=== PATIENT | female | born 1950 | race Caucasian/White ===

== ENCOUNTER → 2020-07-09 | Outpatient (CLI) | payer BC ==
[~2020-07-09] MED LIST: IBUP600 PO; LEVFLO500 PO; OXYACE5T PO; SERT100 PO
== END | disposition home or self-care (01) ==
LOC: LAB SHORT 10:57 → PLD 10:57
DX: D22.5 Melanocytic nevi of trunk (principal)
CPT/HCPCS: 88305

== ENCOUNTER → 2020-09-23 | Outpatient (CLI) | payer BC | LOC: LAB SHORT 16:30 → LAB 16:30 | DX: L02.31 Cutaneous abscess of buttock (principal) | CPT/HCPCS: 87070; 87077; 87186; 87205 ==

== ENCOUNTER 2021-01-15 12:41 | Day surgery (SDC) | payer BC ==
[~2021-01-15] VITALS: Ht 157.5 cm; Wt 57.0 kg
[~2021-01-15 12:41] MED LIST changes: +AMLO5 PO; +BUPROPION XL150 M1 PO; +IRBESARTAN150 MG PO; +Lovastatin40 MG PO
--- NOTE | 2021-01-15 14:27 | NUR ---
01/15/21 1427 Sally Pinzon BUPIVACAINE 30 MLS MIXED WITH EPI 0.15ML TO MAKE BUPIVACAINE 0.5% 1:200,000 PER ORDER FOR INJECTION BY DR. CAGLE. LIDOCAINE 2% 1:100,000 MIXED W/ BUPIVACAINE 0.5% 1:200,000 1:1 PER ORDER FOR INJECTION BY DR. CAGLE. 5 MLS INJECTE AT OPISTE BY DR. CAGLE.
== END 2021-01-15 15:35 | disposition home or self-care (01) ==
LOC: ORSCSDS 12:41
PROVIDERS: Ophthalmology
PROC: 08BN0ZZ Excision of Right Upper Eyelid, Open Approach (ICD-10-PCS; principal; 2021-01-15 14:15)
PROC: 08BP0ZZ Excision of Left Upper Eyelid, Open Approach (ICD-10-PCS; principal; 2021-01-15 14:15)
PROC: 080PXZZ Alteration of Left Upper Eyelid, External Approach (ICD-10-PCS; principal; 2021-01-15 14:15)
PROC: 080NXZZ Alteration of Right Upper Eyelid, External Approach (ICD-10-PCS; principal; 2021-01-15 14:15)
DX: H02.831 Dermatochalasis of right upper eyelid (principal); H02.834 Dermatochalasis of left upper eyelid; H02.423 Myogenic ptosis of bilateral eyelids; I10 Essential (primary) hypertension; Z79.899 Other long term (current) drug therapy
CPT/HCPCS: A9270; J2250; J3010; J7120

== ENCOUNTER 2023-08-17 14:51 | Emergency (ER) | payer BC ==
[~2023-08-17] VITALS: Ht 157.5 cm; Wt 53.1 kg
[2023-08-17 15:58] LABS: BASOPHILS ABSOLUTE AUTO 0.06 K/mm3 (0.00-0.23); BASOPHILS PERCENT AUTO 1 % (0-2); EOSINOPHILS ABSOLUTE AUTO 0.14 K/mm3 (0.00-0.68); EOSINOPHILS PERCENT AUTO 2 % (0-6); Hemoglobin 12.7 g/dL (11.5-16.0); IMMATURE GRAN ABSOLUTE AUTO 0.01 K/mm3 (0.00-0.10); IMMATURE GRAN PERCENT AUTO 0 % (0-1); LYMPHOCYTES ABSOLUTE AUTO 2.26 K/mm3 (0.84-5.20); LYMPHOCYTES PERCENT AUTO 26 % (21-46); MONOCYTES ABSOLUTE AUTO 0.59 K/mm3 (0.16-1.47); MONOCYTES PERCENT AUTO 7 % (4-13); Mean Corpuscular HGB 31.3 pg (26.0-34.0); Mean Corpuscular HGB Conc 32.6 g/dL (31.5-36.5); Mean Corpuscular Volume 96 fL (80-100); Mean Platelet Volume 10.4 fL (9.1-12.4); NEUTROPHILS ABSOLUTE AUTO 5.51 K/mm3 (1.96-9.15); NEUTROPHILS PERCENT AUTO 64 % (41-73); Platelet Count 219 K/mm3 (150-400); RDW Coefficient Variation 13.4 % (11.7-14.2); RDW Standard Deviation 47.7 fL (35.1-46.3); Red Blood Cell Count 4.06 M/mm3 (3.80-5.20); White Blood Cell Count 8.57 K/mm3 (4.00-11.30)
[2023-08-17 15:59] LABS: Albumin, Blood 3.8 g/dL (3.4-5.0); Albumin/Globulin Ratio 1.5 (0.8-1.8); Bilirubin, Total 0.4 mg/dL (0.1-1.0); Bun/Creatinine Ratio 25.1 (12.0-20.0); Calcium, Blood 9.7 mg/dL (8.5-10.1); Creatinine, Blood 0.68 mg/dL (0.40-1.00); Globulin, Blood 2.6 g/dL (2.2-4.0); Potassium, Blood 3.4 mmol/L (3.5-5.5); Total Protein, Blood 6.4 g/dL (6.4-8.2)
[2023-08-17] MEDS ORDERED: Percocet 5-3251 EACH PO (18:36)
[2023-08-17 19:00] VITALS: BP 149/80
== END 2023-08-17 19:19 | disposition home or self-care (01) ==
LOC: ER 14:51
PROVIDERS: Emergency Medicine
DX: S59.291A Other physeal fracture of lower end of radius, right arm, initial encounter for closed fracture (principal); S52.614A Nondisplaced fracture of right ulna styloid process, initial encounter for closed fracture; H91.90 Unspecified hearing loss, unspecified ear; F17.200 Nicotine dependence, unspecified, uncomplicated; W18.30XA Fall on same level, unspecified, initial encounter; Z91.048 Other nonmedicinal substance allergy status; Z79.899 Other long term (current) drug therapy
CPT/HCPCS: 73110; 80053; 85025; 93005; 93010; 99284-25; A9270

== ENCOUNTER 2023-08-30 11:57 | Day surgery (SDC) | payer BC ==
[~2023-08-30] VITALS: Ht 154.9 cm; Wt 52.0 kg
[2023-08-30] VITALS (10 sets, daily range): BP systolic 122–151; BP diastolic 78–96
[~2023-08-30 11:57] MED LIST changes: +Percocet 5-3251 EACH PO
[2023-08-30] MEDS ORDERED: IBUPROFEN IB200 MG PO (12:50)
--- NOTE | 2023-08-30 16:31 | NUR ---
Patient up to Ambulate independently. Gait steady. Patient States Post-Procedure ride home has been arranged. Discharged via wheelchair to private car for ride home. Discharge instructions reviewed with patient. Patient verbalizes understanding. Copy given to patient to take home.
== END 2023-08-30 16:31 | disposition home or self-care (01) ==
LOC: ORSCMMR 11:57 → ORD 13:30 → ORSCMMR 13:30
PROVIDERS: Orthopaedic Surgery
PROC: 0PSH04Z Reposition Right Radius with Internal Fixation Device, Open Approach (ICD-10-PCS; principal; 2023-08-30 13:30)
DX: S52.531A Colles' fracture of right radius, initial encounter for closed fracture (principal); W18.30XA Fall on same level, unspecified, initial encounter; I10 Essential (primary) hypertension; J44.9 Chronic obstructive pulmonary disease, unspecified; F17.210 Nicotine dependence, cigarettes, uncomplicated; Z79.899 Other long term (current) drug therapy
CPT/HCPCS: 73110; A9270; C1713; J0690; J1100; J2250; J2405; J2704; J3010; J7120

== ENCOUNTER 2023-11-09 11:34 | Emergency (ER) | payer BC ==
[~2023-11-09] VITALS: Ht 157.5 cm; Wt 53.5 kg
[~2023-11-09 11:34] MED LIST changes: +IBUPROFEN IB200 MG PO
[2023-11-09 12:07] VITALS: BP 150/94
[2023-11-09] MEDS ORDERED: BUPR150ER PO (12:19)
[2023-11-09] MEDS ORDERED: HYDR1TAB94 PO (13:49)
== END 2023-11-09 13:54 | disposition home or self-care (01) ==
LOC: ER 11:34
DX: S52.572A Other intraarticular fracture of lower end of left radius, initial encounter for closed fracture (principal); S52.232A Displaced oblique fracture of shaft of left ulna, initial encounter for closed fracture; F17.200 Nicotine dependence, unspecified, uncomplicated; W18.30XA Fall on same level, unspecified, initial encounter; Z79.899 Other long term (current) drug therapy
CPT/HCPCS: 29105; 73110; 99283-25

== ENCOUNTER 2023-11-12 11:25 | Day surgery (SDC) | payer BC ==
[2023-11-12] VITALS (14 sets, daily range): BP systolic 129–178; BP diastolic 67–127
[~2023-11-12 11:25] MED LIST changes: +BUPR150ER PO; +HYDR1TAB94 PO
--- NOTE | 2023-11-12 16:51 | NUR ---
Discharge instructions reviewed with patient. Patient verbalizes understanding. Copy given to patient to take home. Physical copy of prescription placed in pt's discharge folder. Patient States Post-Procedure ride home has been arranged. Discharged via wheelchair to private car for ride home.
== END 2023-11-12 16:50 | disposition home or self-care (01) ==
LOC: ORSCMMR 11:25
PROVIDERS: Orthopaedic Surgery
PROC: 0PSJ04Z Reposition Left Radius with Internal Fixation Device, Open Approach (ICD-10-PCS; principal; 2023-11-12 13:30)
PROC: 0PSV04Z Reposition Left Finger Phalanx with Internal Fixation Device, Open Approach (ICD-10-PCS; principal; 2023-11-12 13:30)
DX: S52.552A Other extraarticular fracture of lower end of left radius, initial encounter for closed fracture (principal); W18.30XA Fall on same level, unspecified, initial encounter; I10 Essential (primary) hypertension; F17.210 Nicotine dependence, cigarettes, uncomplicated; F41.9 Anxiety disorder, unspecified; F32.A Depression, unspecified; Z79.899 Other long term (current) drug therapy
CPT/HCPCS: 73100; C1713; J0690; J1100; J1885; J2405; J2704; J7120

== ENCOUNTER 2024-06-27 19:22 | Emergency (ER) | payer BC ==
[~2024-06-27] VITALS: Ht 157.5 cm; Wt 53.1 kg
[2024-06-27 19:47] LABS: BASOPHILS ABSOLUTE AUTO 0.07 K/mm3 (0.00-0.23); BASOPHILS PERCENT AUTO 1 % (0-2); EOSINOPHILS ABSOLUTE AUTO 0.23 K/mm3 (0.00-0.68); EOSINOPHILS PERCENT AUTO 2 % (0-6); Hematocrit 42.2 % (33.0-51.0); Hemoglobin 13.6 g/dL (11.5-16.0); IMMATURE GRAN ABSOLUTE AUTO 0.03 K/mm3 (0.00-0.10); IMMATURE GRAN PERCENT AUTO 0 % (0-1); LYMPHOCYTES ABSOLUTE AUTO 3.21 K/mm3 (0.84-5.20); LYMPHOCYTES PERCENT AUTO 31 % (21-46); MONOCYTES ABSOLUTE AUTO 0.76 K/mm3 (0.16-1.47); MONOCYTES PERCENT AUTO 7 % (4-13); Mean Corpuscular HGB 31.6 pg (26.0-34.0); Mean Corpuscular HGB Conc 32.2 g/dL (31.5-36.5); Mean Corpuscular Volume 98 fL (80-100); NEUTROPHILS ABSOLUTE AUTO 6.12 K/mm3 (1.96-9.15); NEUTROPHILS PERCENT AUTO 59 % (41-73); Platelet Count 240 K/mm3 (150-400); RDW Coefficient Variation 13.6 % (11.7-14.2); RDW Standard Deviation 49.1 fL (35.1-46.3); Red Blood Cell Count 4.31 M/mm3 (3.80-5.20); White Blood Cell Count 10.42 K/mm3 (4.00-11.30)
[2024-06-27 20:15] LABS: Albumin, Blood 3.8 g/dL (3.4-5.0); Albumin/Globulin Ratio 1.3 (0.8-1.8); Bilirubin, Total 0.4 mg/dL (0.1-1.0); Calcium, Blood 9.7 mg/dL (8.5-10.1); Creatinine, Blood 0.76 mg/dL (0.40-1.00); Globulin, Blood 2.9 g/dL (2.2-4.0); Potassium, Blood 3.4 mmol/L (3.5-5.5); Total Protein, Blood 6.7 g/dL (6.4-8.2)
[2024-06-27 21:45] VITALS: BP 115/70
== END 2024-06-27 21:50 | disposition home or self-care (01) ==
LOC: ER 19:22
PROVIDERS: Emergency Medicine
DX: F41.9 Anxiety disorder, unspecified (principal); F17.200 Nicotine dependence, unspecified, uncomplicated; Z79.899 Other long term (current) drug therapy
CPT/HCPCS: 80053; 85025; 93005; 93010; 99283-25

== ENCOUNTER 2024-09-26 06:29 | Day surgery (SDC) | payer BC ==
[~2024-09-26] VITALS: Ht 154.9 cm; Wt 55.4 kg
[~2024-09-26 06:29] MED LIST changes: +Balanced Salt Epinephrine Irrigation Solution 500 mL IR SCH; +Lidocaine HCl/Pf 1% 5 ML VIAL XX SCH; +Moxifloxacin HCL 0.5 MG/0.1 ML 0.4MLSYR LEFTEYE SCH; +PHENYLEPHRINE\\TROPICAMIDE\\TETRACAINE OPHTHALMIC DILATING SOLN LEFTEYE PRN; +Povidone-Iodine 450 DROP/30 ML Solution LEFTEYE SCH; +Povidone-Iodine 450 DROP/30 ML Solution ONE; +Tetracaine HCl/Pf 0.5% Opth Soln 4 ml ONE
[2024-09-26] MEDS ORDERED: Lidocaine HCl/Pf 1% 5 ML VIAL ONE (06:36)
--- NOTE | 2024-09-26 06:55 | NUR ---
09/26/24 0655 Rojas Doran CALL LIGHT WITHIN REACH. TETRACAINE IN LEFT EYE AT 0655 AND PLEDGETT IN AT 0656
[2024-09-26] MEDS ORDERED: Midazolam HCl 1MG / ML 2ML Vial ONE (07:48)
[2024-09-26] MEDS ORDERED: Balanced Salt Epinephrine Irrigation Solution 500 mL IR ONE (08:01)
[2024-09-26] MEDS ORDERED: Moxifloxacin HCL 0.5 MG/0.1 ML 0.4MLSYR LEFTEYE ONE (08:01)
[2024-09-26 08:43] VITALS: BP 143/85
== END 2024-09-26 08:35 | disposition home or self-care (01) ==
LOC: ORSCSDS 06:29
PROVIDERS: Student in an Organized Health Care Education/Training Program
PROC: 08RK3JZ Replacement of Left Lens with Synthetic Substitute, Percutaneous Approach (ICD-10-PCS; principal; 2024-09-26 08:00)
DX: E11.36 Type 2 diabetes mellitus with diabetic cataract (principal); H25.812 Combined forms of age-related cataract, left eye; Z96.1 Presence of intraocular lens; H35.413 Lattice degeneration of retina, bilateral; I62.9 Nontraumatic intracranial hemorrhage, unspecified; F17.210 Nicotine dependence, cigarettes, uncomplicated; Z79.899 Other long term (current) drug therapy
CPT/HCPCS: J2003; J2250; V2632

== ENCOUNTER 2024-12-29 19:43 | Observation (INO) | payer BC ==
[~2024-12-29] VITALS: Ht 157.5 cm; Wt 56.7 kg
[~2024-12-29 19:43] MED LIST changes: -Balanced Salt Epinephrine Irrigation Solution 500 mL IR SCH; -Lidocaine HCl/Pf 1% 5 ML VIAL XX SCH; -Moxifloxacin HCL 0.5 MG/0.1 ML 0.4MLSYR LEFTEYE SCH; -PHENYLEPHRINE\\TROPICAMIDE\\TETRACAINE OPHTHALMIC DILATING SOLN LEFTEYE PRN; -Povidone-Iodine 450 DROP/30 ML Solution LEFTEYE SCH; -Povidone-Iodine 450 DROP/30 ML Solution ONE; -Tetracaine HCl/Pf 0.5% Opth Soln 4 ml ONE
[2024-12-29 20:30] LABS: BASOPHILS ABSOLUTE AUTO 0.05 K/mm3 (0.00-0.23); BASOPHILS PERCENT AUTO 0 % (0-2); EOSINOPHILS ABSOLUTE AUTO 0.15 K/mm3 (0.00-0.68); EOSINOPHILS PERCENT AUTO 1 % (0-6); Hematocrit 39.1 % (33.0-51.0); Hemoglobin 13.1 g/dL (11.5-16.0); IMMATURE GRAN ABSOLUTE AUTO 0.06 K/mm3 (0.00-0.10); IMMATURE GRAN PERCENT AUTO 1 % (0-1); LYMPHOCYTES ABSOLUTE AUTO 2.84 K/mm3 (0.84-5.20); LYMPHOCYTES PERCENT AUTO 24 % (21-46); MONOCYTES ABSOLUTE AUTO 0.91 K/mm3 (0.16-1.47); MONOCYTES PERCENT AUTO 8 % (4-13); Mean Corpuscular HGB 31.8 pg (26.0-34.0); Mean Corpuscular HGB Conc 33.5 g/dL (31.5-36.5); Mean Corpuscular Volume 95 fL (80-100); Mean Platelet Volume 10.3 fL (9.1-12.4); NEUTROPHILS ABSOLUTE AUTO 7.72 K/mm3 (1.96-9.15); NEUTROPHILS PERCENT AUTO 66 % (41-73); Platelet Count 274 K/mm3 (150-400); RDW Coefficient Variation 13.8 % (11.7-14.2); RDW Standard Deviation 48.2 fL (35.1-46.3); Red Blood Cell Count 4.12 M/mm3 (3.80-5.20); White Blood Cell Count 11.73 K/mm3 (4.00-11.30)
[2024-12-29 20:43] LABS: Albumin, Blood 3.8 g/dL (3.4-5.0); Albumin/Globulin Ratio 1.4 (0.8-1.8); Bilirubin, Total 0.5 mg/dL (0.1-1.0); Bun/Creatinine Ratio 16.7 (12.0-20.0); Calcium, Blood 9.6 mg/dL (8.5-10.1); Creatinine, Blood 1.14 mg/dL (0.40-1.00); Globulin, Blood 2.8 g/dL (2.2-4.0); Potassium, Blood 3.9 mmol/L (3.5-5.5); Total Protein, Blood 6.6 g/dL (6.4-8.2)
[2024-12-29 21:44] LABS: Influenza A, PCR NEGATIVE (NEGATIVE); Influenza B, PCR NEGATIVE (NEGATIVE); Resp Syncytial Virus, PCR NEGATIVE (NEGATIVE); SARS-Cov-2 (COVID-19) PCR, MMC NEGATIVE (NEGATIVE)
[2024-12-29] MEDS ORDERED: NS 1,000 ML IV SCH (21:50)
[2024-12-30] MEDS ORDERED: NS 1,000 ML IV SCH (00:30)
[2024-12-30] MEDS ORDERED: Morphine Sulfate 4 MG/1 ML Injection IV ONE (00:40)
[2024-12-30] MEDS ORDERED: Acetaminophen 325 MG TABLET PO PRN (01:35)
[2024-12-30] MEDS ORDERED: Ondansetron HCl 2 MG / ML 2ML Vial IV PRN (01:40)
[2024-12-30] MEDS ORDERED: FLU VACC TS2024-25(6MOS UP)/PF 45 MCG/0.5 ML SYRINGE IM ONE (01:40)
[2024-12-30] MEDS ORDERED: Ketorolac Tromethamine 15mg Vial IV PRN (01:50)
[2024-12-30 04:25] VITALS: BP 159/83
[2024-12-30] MEDS ORDERED: OxyCODONE HCL 5 MG TAB PO PRN (04:55)
--- NOTE | 2024-12-30 05:54 | NUR ---
SHIFT SUMMARY SIRENA ARRIVED FROM THE ED LATE THIS SHIFT, ADMIT COMPLETE. PT WAS A/O X4 ON ARRIVAL AND ABLE TO WALK TO BED. PT HAS A BRUISE ABOVE LEFT EYE FROM FALL AT HOME AND R SIDE 5TH RIB FX. PT HERE FOR OBS AND PAIN MANAGEMENT AT THIS TIME. NO ACUTE EVENTS FROM TIME OF ARRIVAL. PT IS A DAILY DRINKER, AND FELL AT HOME AFTER DRINKING AND THC USE.
[2024-12-30 06:10] LABS: BASOPHILS ABSOLUTE AUTO 0.04 K/mm3 (0.00-0.23); BASOPHILS PERCENT AUTO 0 % (0-2); EOSINOPHILS ABSOLUTE AUTO 0.08 K/mm3 (0.00-0.68); EOSINOPHILS PERCENT AUTO 1 % (0-6); Hematocrit 37.9 % (33.0-51.0); Hemoglobin 12.6 g/dL (11.5-16.0); IMMATURE GRAN ABSOLUTE AUTO 0.04 K/mm3 (0.00-0.10); IMMATURE GRAN PERCENT AUTO 0 % (0-1); LYMPHOCYTES ABSOLUTE AUTO 2.57 K/mm3 (0.84-5.20); LYMPHOCYTES PERCENT AUTO 25 % (21-46); MONOCYTES ABSOLUTE AUTO 0.86 K/mm3 (0.16-1.47); MONOCYTES PERCENT AUTO 8 % (4-13); Mean Corpuscular HGB 31.7 pg (26.0-34.0); Mean Corpuscular HGB Conc 33.2 g/dL (31.5-36.5); Mean Corpuscular Volume 95 fL (80-100); Mean Platelet Volume 9.9 fL (9.1-12.4); NEUTROPHILS ABSOLUTE AUTO 6.63 K/mm3 (1.96-9.15); NEUTROPHILS PERCENT AUTO 65 % (41-73); Platelet Count 209 K/mm3 (150-400); RDW Coefficient Variation 13.7 % (11.7-14.2); Red Blood Cell Count 3.98 M/mm3 (3.80-5.20); White Blood Cell Count 10.22 K/mm3 (4.00-11.30)
[2024-12-30 06:31] LABS: Albumin, Blood 3.3 g/dL (3.4-5.0); Albumin/Globulin Ratio 1.4 (0.8-1.8); Bilirubin, Total 0.7 mg/dL (0.1-1.0); Bun/Creatinine Ratio 20.4 (12.0-20.0); Calcium, Blood 8.4 mg/dL (8.5-10.1); Creatinine, Blood 0.64 mg/dL (0.40-1.00); Globulin, Blood 2.4 g/dL (2.2-4.0); Potassium, Blood 3.4 mmol/L (3.5-5.5); Total Protein, Blood 5.7 g/dL (6.4-8.2)
[2024-12-30] MEDS ORDERED: Polyethylene Glycol 3350 17 gm PO PRN (08:00)
[2024-12-30] MEDS ORDERED: Potassium Chloride 20 MEQ TabCR PO ONE (08:00)
[2024-12-30 08:12] VITALS: BP 164/87
[2024-12-30] MEDS ORDERED: Enoxaparin 40 MG/0.4 ML SYR SC SCH (09:00)
[2024-12-30] MEDS ORDERED: Thiamine HCl 100 MG Tab PO SCH (09:00)
[2024-12-30] MEDS ORDERED: Multivitamins 1 Tab PO SCH (09:00)
[2024-12-30 12:02] VITALS: BP 138/78
[2024-12-30 15:00] VITALS: BP 141/81
--- NOTE | 2024-12-30 19:05 | NUR ---
SHIFT SUMMARY PAIN MANAGED WITH TYLENOL AND OXY THIS SHIFT. PT HAS BEEN ALERT/ORIENTED AND CALLS APPROPRIATELY. CIWA SCORE OF 3.
[2024-12-30 20:18] VITALS: BP 149/93
[2024-12-30] MEDS ORDERED: Docusate Sodium/Senna 1 Tab PO SCH (21:00)
[2024-12-31 00:44] VITALS: BP 146/87
[2024-12-31 04:36] LABS: Hematocrit 39.2 % (33.0-51.0); Hemoglobin 13.1 g/dL (11.5-16.0); Mean Corpuscular HGB Conc 33.4 g/dL (31.5-36.5); Mean Corpuscular Volume 96 fL (80-100); Mean Platelet Volume 9.6 fL (9.1-12.4); Platelet Count 200 K/mm3 (150-400); RDW Coefficient Variation 13.5 % (11.7-14.2); RDW Standard Deviation 48.2 fL (35.1-46.3); Red Blood Cell Count 4.09 M/mm3 (3.80-5.20); White Blood Cell Count 7.31 K/mm3 (4.00-11.30)
[2024-12-31 04:51] VITALS: BP 160/97
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
[2024-12-31 05:10] LABS: Albumin, Blood 3.5 g/dL (3.4-5.0); Anion Gap 7 mmol/L (3-11); Blood Urea Nitrogen 10 mg/dL (8-24); CO2, Blood 25 mmol/L (21-32); Calcium, Blood 9.1 mg/dL (8.5-10.1); Chloride, Blood 113 mmol/L (98-108); Creatinine, Blood 0.59 mg/dL (0.40-1.00); Glomerular Filtration Rate 95 (60-); Glucose, Blood 113 mg/dL (70-99); Phosphorus, Blood 2.6 mg/dL (2.5-4.9); Potassium, Blood 3.3 mmol/L (3.5-5.5); Sodium, Blood 142 mmol/L (136-145)
--- NOTE | 2024-12-31 06:11 | NUR ---
SHIFT SUMMARY AOX4. VERY IGIUGIG, READS LIPS WHEN HEARING AIDS NOT IN. ANSWERS QUESTIONS APPROPRIATE, CAN BE FORGETFUL. DENIES ANY DIZZINESS, GALLOWAY, N/V OR DYSPNEA. VSS. TELE NSR HR 76. REPORTS 9-1010 PAIN TO R SIDE, MEDICATED 2x C TYLENOL & 5MG OXYCODONE & PT ABLE TO REST COMFORTABLY W/EYES CLOSED. PT HAS BEEN UP TO BSC 2x & VOIDED. TOLERATING PO. CONCERNED FOR SAFETY W/RETURNING HOME, READ PREVIOUS NOTE. CALL LIGHT IN REACH.
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
[2024-12-31] MEDS ORDERED: Potassium Chloride 20 MEQ TabCR PO ONE (07:50)
[2024-12-31 08:18] VITALS: BP 170/103
[2024-12-31] MEDS ORDERED: PRAV20 PO (10:29)
[2024-12-31] MEDS ORDERED: Irbesartan 150 MG Tab PO SCH (10:40)
[2024-12-31] MEDS ORDERED: Pravastatin Sodium 20 MG Tab PO SCH (10:40)
[2024-12-31] MEDS ORDERED: buPROPion HCL 150 MG TAB.SR.12H PO SCH (10:40)
[2024-12-31] MEDS ORDERED: Sertraline HCl 100 MG Tab PO SCH (10:40)
[2024-12-31] MEDS ORDERED: AmLODIPine Besylate 5 MG Tab PO SCH (10:40)
[2024-12-31 13:28] VITALS: BP 151/90
[2024-12-31] MEDS ORDERED: OXAYDO5 M1 PO (14:05)
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
--- NOTE | 2024-12-31 14:56 | NUR ---
PT WAS ABLE TO AMBULATE APPROXIMATELY 100FT IN THE HALWAYS PRIOR TO DISCHARGE HOME. HYDRATION ENCOURAGED.
== END 2024-12-31 14:35 | disposition home or self-care (01) ==
LOC: ER 19:43 → ERHOLD 19:44 → SURS 19:44
PROVIDERS: Internal Medicine; Student in an Organized Health Care Education/Training Program; ADMIT Student in an Organized Health Care Education/Training Program
DX: S22.31XA Fracture of one rib, right side, initial encounter for closed fracture (principal); R55 Syncope and collapse; F32.A Depression, unspecified; F17.210 Nicotine dependence, cigarettes, uncomplicated; Z79.899 Other long term (current) drug therapy; W18.30XA Fall on same level, unspecified, initial encounter
CPT/HCPCS: 0241U; 36415; 70450; 71260; 72125; 80053; 80069; 80320; 83735; 84484; 85025; 85027; 93005; 93010; 96361; 96372; 96374; 96375; 99285-25; A9270; G0378; J1650; J1885; J2270; J7030; Q9967